=== PATIENT | female | born 1950 | race African-American/Black ===

== ENCOUNTER 2024-03-12 14:49 | Emergency (ER) | payer MEDICARE, OTHER ==
[2024-03-12 15:04] VITALS: TEMP 98
[2024-03-12 18:15] VITALS: O2SAT 92
[2024-03-12 18:30] VITALS: BP 169/72
[2024-03-12] MEDS: FOSFOMYCIN TROMETHAMINE 3 GM POWDER PACKET (MONUROL) PO ONE (19:24)
== END 2024-03-12 22:32 | disposition home or self-care (01) ==
LOC: M ED 14:49 → EDBD 14:49 → M ED 22:32
DX: N39.0 Urinary tract infection, site not specified (principal); B96.20 Unspecified Escherichia coli [E. coli] as the cause of diseases classified elsewhere; B35.1 Tinea unguium; Z86.79 Personal history of other diseases of the circulatory system; Z88.0 Allergy status to penicillin; Z88.2 Allergy status to sulfonamides; Z91.040 Latex allergy status